=== PATIENT | female | born 1960 | race Caucasian/White ===

== ENCOUNTER 2017-12-04 11:23 | Emergency (ER) | payer MEDICARE, MEDICAID ==
[~2017-12-04] VITALS: Ht 167.6 cm; Wt 66.9 kg
[~2017-12-04 11:23] MED LIST: ALBU8.5H8 IH; BUDE10.22 INH; CALC60CR4 TP; CLON-528 PO; GABA300C PO; LORA-512 PO; METH-603 PO; MULT1TAB74 PO; NORCO10T PO; OMEP-84 PO; SUMA100T PO; TRAZ-91 PO; VALA500T PO; ZOLP10TA5 PO
[2017-12-04 12:07] LABS: BASOPHILS % (AUTO) 0.3 % (0-1); EOSINOPHILS # (AUTO) 0.2 X10'3 (0-0.9); EOSINOPHILS % (AUTO) 2.5 % (0-6); HEMOGLOBIN 12.2 g/dl (12.0-16.0); LYMPHOCYTES # (AUTO) 1.3 X10'3 (1.1-4.8); LYMPHOCYTES % (AUTO) 13.3 % (21-51); MEAN CORPUSCULAR HEMOGLOBIN 32.1 PG (27.0-31.0); MEAN CORPUSCULAR HGB CONC 33.8 % (33.0-36.5); MEAN CORPUSCULAR VOLUME 94.9 FL (78-98); MEAN PLATELET VOLUME 8.8 FL (7.4-10.4); MONOCYTES # (AUTO) 0.6 X10'3 (0-0.9); NEUTROPHILS # (AUTO) 7.5 X10'3 (1.8-7.7); NEUTROPHILS % (AUTO) 77.9 % (42-75); PLATELET COUNT 250 X10'3 (140-440); RED CELL DISTRIBUTION WIDTH 15.4 % (11.5-14.5); WHITE BLOOD COUNT 9.6 X10'3 (4.5-11.0)
[2017-12-04 12:15] LABS: PROTHROMBIN TIME 10.6 SECONDS (9.0-12.0)
[2017-12-04 12:21] LABS: ALANINE AMINOTRANSFERASE 122 U/L (12-78); ALBUMIN 3.2 G/DL (3.4-5.0); ALBUMIN/GLOBULIN RATIO 0.8 (1.1-1.5); ALKALINE PHOSPHATASE 232 IU/L (46-116); ANION GAP 8 (8-16); ASPARTATE AMINO TRANSFERASE 107 U/L (10-37); BILIRUBIN,TOTAL 0.3 MG/DL (0.1-1.0); BLOOD UREA NITROGEN 11 MG/DL (7-18); BUN/CREATININE RATIO 22.9 (6.6-38.0); CALCIUM 8.8 MG/DL (8.5-10.1); CHLORIDE 101 MMOL/L (99-107); CREATININE 0.48 MG/DL (0.40-0.90); GLUCOSE 129 MG/DL (70-104); LIPASE < 50 U/L (73-393); SODIUM 138 MMOL/L (135-145); TOTAL CARBON DIOXIDE 29.4 MMOL/L (24-32); eGFR > 90 ML/MIN
[2017-12-04 14:21] LABS: CLARITY,URINE CLEAR (Clear); COLOR,URINE YELLOW (Yellow); GLUCOSE, URINE NEGATIVE (Neg); KETONES,URINE NEGATIVE (Neg); LEUKOCYTE ESTERASE ,URINE NEGATIVE (Neg); NITRITES, URINE NEGATIVE (Neg); OCCULT BLOOD,URINE NEGATIVE (Neg); PROTEIN,URINE NEGATIVE (Neg); UROBILINOGEN,URINE 0.2 E.U/dL (0.2-1.0)
[2017-12-04 14:23] LABS: UA COLLECTION TYPE VOIDED
[2017-12-04 15:07] VITALS: BP 125/96
[2017-12-04 16:11] LABS: OCCULT BLOOD STOOL NEGATIVE (Neg)
== END 2017-12-04 15:10 | disposition home or self-care (01) ==
LOC: ER 11:23
DX: K62.5 Hemorrhage of anus and rectum (principal); R53.1 Weakness; R79.89 Other specified abnormal findings of blood chemistry; J44.9 Chronic obstructive pulmonary disease, unspecified; I25.10 Atherosclerotic heart disease of native coronary artery without angina pectoris; M79.7 Fibromyalgia; Z79.899 Other long term (current) drug therapy
CPT/HCPCS: 36415; 74176; 80053; 81003; 82272; 83690; 85025; 85610; 99285

== ENCOUNTER 2018-11-05 08:38 | Day surgery (SDC) | payer MEDICARE, MEDICAID ==
[~2018-11-05] VITALS: Ht 167.6 cm; Wt 63.3 kg
[2018-11-05 08:54] VITALS: BP 141/74
[2018-11-05] MEDS ORDERED: normal saline 1000ml 1,000 ML IV PRN (09:05)
[2018-11-05] MEDS ORDERED: albumin 25% 50mL bottle X 2 BOTTLES IV PRN (09:05)
[2018-11-05] MEDS ORDERED: AMYL1CAP53 PO (09:20)
[2018-11-05] MEDS ORDERED: FURO-150 PO (09:20)
[2018-11-05] MEDS ORDERED: PANT-47 PO (09:20)
[2018-11-05] MEDS ORDERED: TIOT4MIS5 (09:20)
[2018-11-05] MEDS ORDERED: BUPR1PAT TOP (09:20)
[2018-11-05] MEDS ORDERED: DULO-31 PO (09:20)
[2018-11-05] MEDS ORDERED: LIDOcaine 1% 30ml preserv. free vial SQ ONE (10:00)
== END 2018-11-05 10:25 | disposition home or self-care (01) ==
LOC: SSTAY O 08:38
PROVIDERS: ATTEND Radiology Diagnostic Radiology
DX: R18.8 Other ascites (principal); Z85.07 Personal history of malignant neoplasm of pancreas; J43.9 Emphysema, unspecified; M19.90 Unspecified osteoarthritis, unspecified site; Z85.118 Personal history of other malignant neoplasm of bronchus and lung; Z82.49 Family history of ischemic heart disease and other diseases of the circulatory system; Z79.899 Other long term (current) drug therapy
CPT/HCPCS: 76705; J3490; J7030

== ENCOUNTER 2019-02-12 12:01 | Emergency (ER) | payer MEDICARE, MEDICAID ==
[~2019-02-12] VITALS: Ht 167.6 cm; Wt 59.1 kg
[~2019-02-12 12:01] MED LIST changes: -ALBU8.5H8 IH; +AMYL1CAP53 PO; +BUPR1PAT TOP; +DULO-31 PO; +FURO-150 PO; -METH-603 PO; +PANT-47 PO; +TIOT4MIS5
[2019-02-12 12:44] LABS: BASOPHILS % (AUTO) 0.5 % (0-1); EOSINOPHILS # (AUTO) 0.1 X10'3 (0-0.9); EOSINOPHILS % (AUTO) 1.5 % (0-6); HEMATOCRIT 26.8 % (35.0-45.0); HEMOGLOBIN 8.8 g/dl (12.0-16.0); LYMPHOCYTES # (AUTO) 1.3 X10'3 (1.1-4.8); LYMPHOCYTES % (AUTO) 13.5 % (21-51); MEAN CORPUSCULAR HEMOGLOBIN 29.7 PG (27.0-31.0); MEAN CORPUSCULAR HGB CONC 32.7 g/dL (33.0-36.5); MEAN CORPUSCULAR VOLUME 90.9 FL (78-98); MEAN PLATELET VOLUME 8.3 FL (7.4-10.4); MONOCYTES # (AUTO) 0.7 X10'3 (0-0.9); NEUTROPHILS # (AUTO) 7.3 X10'3 (1.8-7.7); NEUTROPHILS % (AUTO) 77.5 % (42-75); PLATELET COUNT 161 X10'3 (140-440); RED BLOOD COUNT 2.95 X10'6 (4.20-5.60); RED CELL DISTRIBUTION WIDTH 18.5 % (11.5-14.5); WHITE BLOOD COUNT 9.5 X10'3 (4.5-11.0)
[2019-02-12 13:00] LABS: INR 1.4 INR
[2019-02-12 13:04] LABS: ALANINE AMINOTRANSFERASE 22 U/L (12-78); ALBUMIN 2.5 G/DL (3.4-5.0); ALBUMIN/GLOBULIN RATIO 0.8 (1.1-1.5); ALKALINE PHOSPHATASE 199 IU/L (46-116); ANION GAP 3 (8-16); ASPARTATE AMINO TRANSFERASE 38 U/L (10-37); BILIRUBIN,TOTAL 1.5 MG/DL (0.1-1.0); BLOOD UREA NITROGEN 7 MG/DL (7-18); BUN/CREATININE RATIO 13.5 (6.6-38.0); CALCIUM 8.1 MG/DL (8.5-10.1); CHLORIDE 102 MMOL/L (99-107); CREATININE 0.52 MG/DL (0.40-0.90); GLUCOSE 171 MG/DL (70-104); LIPASE < 50 U/L (73-393); POTASSIUM 3.2 MMOL/L (3.5-5.1); SODIUM 137 MMOL/L (135-145); TOTAL CARBON DIOXIDE 32.1 MMOL/L (24-32); TOTAL PROTEIN 5.5 G/DL (6.4-8.2); eGFR > 90 ML/MIN
[2019-02-12] MEDS ORDERED: ondansetron/PF 4mg/2ml inj IV ONE (14:15)
[2019-02-12] MEDS ORDERED: normal saline 1000ML IV soln IVB ONE (14:15)
[2019-02-12] MEDS: morphine 4 MG/ML inj SYRINge IV PRN ×2 (14:31→16:38)
[2019-02-12] MEDS ORDERED: potassium Cl 20 mEq SR tablet PO ONE (15:40)
[2019-02-12] MEDS ORDERED: metoclopramide 5 mg/ml inj IV ONE (15:55)
[2019-02-12] MEDS ORDERED: diphenhydrAMINE 50 mg/ml inj IV ONE (15:55)
[2019-02-12] MEDS ORDERED: METO-292 PO (16:07)
[2019-02-12 16:40] VITALS: BP 120/65
[2019-02-14 14:18] LABS: OCCULT BLOOD STOOL NEGATIVE (Neg)
== END 2019-02-12 17:31 | disposition home or self-care (01) ==
LOC: ER 12:02
DX: R11.2 Nausea with vomiting, unspecified (principal); D64.9 Anemia, unspecified; G89.29 Other chronic pain; R10.10 Upper abdominal pain, unspecified; J43.9 Emphysema, unspecified; M19.90 Unspecified osteoarthritis, unspecified site; Z98.890 Other specified postprocedural states; Z79.899 Other long term (current) drug therapy
CPT/HCPCS: 36415; 80053; 83690; 85025; 85610; 96361; 96374; 96375; 96376; 99284; J1200; J2270; J2405; J2765; J7030; 82272